=== PATIENT | male | born 1965 | race Caucasian/White ===

== ENCOUNTER 2017-09-17 20:04 | Emergency (ER) | payer SELFPAY ==
[~2017-09-17] VITALS: Ht 177.8 cm; Wt 110.0 kg
[2017-09-17 20:08] VITALS: BP 142/62; PULSE 101; RESP 18; TEMP 100.1; O2SAT 96
--- NOTE | 2017-09-17 21:15 | RADRPT ---
EXAM DATE/TIME: 09/17/2017 20:42 [place] COMPARISON: No previous studies available for comparison. INDICATIONS : Left foot pain and swelling for the past two weeks. No known trauma. MEDICAL HISTORY : None. SURGICAL HISTORY : None. ENCOUNTER: Initial ACUITY: 2 weeks PAIN SCORE: 7/10 LOCATION: Left foot. FINDINGS: Three view examination of the left foot demonstrates no soft tissue swelling, dislocation, or fractur e. The tarsal bones appear intact. The interphalangeal and metatarsophalangeal joints are intact. The calcaneus is intact. Bony mineralization is normal. CONCLUSION: Normal examination for a patient of this age. Luiz Ramirez MD on September 17, 2017 at 21:11 Board Certified Radiologist. This report was verified electronically.
--- NOTE | 2017-09-17 22:36 | PD ---
HPI Chief Complaint: Skin Problem Time Seen by Provider: 22:31 Travel History International Travel<30 days: No Contact w/Intl Traveler<30days: No Traveled to known affect area: No History of Present Illness HPI Patient is a 51-year-old male presenting to the emergency department for evaluation of left foot pain and swelling. Patient states it started 3-4 days ago. He reports that for the last 24 hours he has felt sick, achy. He denies any significant past medical history although he does not have a primary doctor and has not been evaluated in 20 years. Patient states that he does [employer] and runs barefoot doing sprints. He denies any history of athlete's foot but states his feet have been more callus and cracking recently. The pain is a 7 out of 10, is getting progressively worse. Is aching and throbbing. Patient has not taken any medications to alleviate the pain. Symptom onset was gradual , symptoms are moderate in nature. PFSH Past Medical History Medical History: Denies Significant Hx Immunizations Current: Yes Tetanus Vaccination: Unknown Influenza Vaccination: No Social History Alcohol Use: No Tobacco Use: No Substance Use: No Allergies-Medications (Allergen,Severity, Reaction): Coded Allergies: levofloxacin (Verified Allergy, Unknown, 09/17/17) Reported Meds & Prescriptions Reported Meds & Active Scripts Active No Active Prescriptions or Reported Medications Review of Systems Except as stated in HPI: all other systems reviewed are Neg General / Constitutional: Positive: Fever, Chills HENT: No: Headaches Cardiovascular: No: Chest Pain or Discomfort Respiratory: No: Shortness of Breath Gastrointestinal: No: Nausea, Abdominal Pain Genitourinary: No: Dysuria Musculoskeletal: Positive: Myalgias Skin: Positive Dryness, Positive Change in Pigmentation, Positive Lesions Neurologic: No: Weakness Physical Exam Narrative GENERAL: Well-developed, well-nourished, alert male. Presenting in no acute distress. SKIN: Warm and dry. Erythema and edema noted to the left first interdigital space, MTP joint on the left first toe. The plantar aspect of the left foot has a callus to the foot pad that has opened. There is no drainage noted. It is tender to palpation. HEAD: Atraumatic. Normocephalic. EYES: Pupils equal and round. No scleral icterus. No injection or drainage. ENT: No nasal bleeding or discharge. Mucous membranes pink and moist. NECK: Trachea midline. No JVD. CARDIOVASCULAR: Regular rate and rhythm. RESPIRATORY: No accessory muscle use. Clear to auscultation. Breath sounds equal bilaterally. GASTROINTESTINAL: Abdomen soft, non-tender, nondistended. Hepatic and splenic margins not palpable. MUSCULOSKELETAL: Extremities without clubbing, cyanosis, or edema. No obvious deformities. NEUROLOGICAL: Awake and alert. No obvious cranial nerve deficits. Motor grossly within normal limits. Five out of 5 muscle strength in the arms and legs. Normal speech. PSYCHIATRIC: Appropriate mood and affect; insight and judgment normal. Data Data Last Documented VS Vital Signs Date Time Temp Pulse Resp B/P (MAP) Pulse Ox O2 Delivery O2 Flow Rate FiO2 09/18/17 00:13 98.2 65 16 136/61 (86) 98 Room Air Orders Orders Foot, Complete (Vas1gac) (09/17/17 ) Basic Metabolic Panel (Bmp) (09/17/17 22:31) Complete Blood Count With Diff (09/17/17 22:31) Ibuprofen (Motrin) (09/17/17 22:45) C-Reactive Protein (Crp) (09/17/17 22:31) Westergren Sedimentation Rate (09/17/17 22:31) Iv Access Insert/Monitor (09/17/17 22:31) Clindamycin 900 Mg/Ns Premix (Cleocin 90 (09/17/17 22:45) Acetaminophen (Tylenol) (09/17/17 23:00) Labs Laboratory Tests Test 09/17/17 22:40 White Blood Count 14.9 TH/MM3 Red Blood Count 4.80 MIL/MM3 Hemoglobin 14.5 GM/DL Hematocrit 41.8 % Mean Corpuscular Volume 86.9 FL Mean Corpuscular Hemoglobin 30.2 PG Mean Corpuscular Hemoglobin Concent 34.7 % Red Cell Distribution Width 13.6 % Platelet Count 210 TH/MM3 Mean Platelet Volume 8.8 FL Neutrophils (%) (Auto) 86.1 % Lymphocytes (%) (Auto) 6.7 % Monocytes (%) (Auto) 6.3 % Eosinophils (%) (Auto) 0.6 % Basophils (%) (Auto) 0.3 % Neutrophils # (Auto) 12.9 TH/MM3 Lymphocytes # (Auto) 1.0 TH/MM3 Monocytes # (Auto) 0.9 TH/MM3 Eosinophils # (Auto) 0.1 TH/MM3 Basophils # (Auto) 0.1 TH/MM3 CBC Comment DIFF FINAL Differential Comment Erythrocyte Sedimentation Rate 12 mm/hr Blood Urea Nitrogen 22 MG/DL Creatinine 1.56 MG/DL Random Glucose 105 MG/DL Calcium Level 8.6 MG/DL Sodium Level 138 MEQ/L Potassium Level 4.1 MEQ/L Chloride Level 106 MEQ/L Carbon Dioxide Level 22.1 MEQ/L Anion Gap 10 MEQ/L Estimat Glomerular Filtration Rate 47 ML/MIN C-Reactive Protein 8.10 MG/DL MDM Medical Decision Making Medical Screen Exam Complete: Yes Emergency Medical Condition: Yes Interpretation(s) Vital Signs Date Time Temp Pulse Resp B/P (MAP) Pulse Ox O2 Delivery O2 Flow Rate FiO2 09/18/17 00:13 98.2 65 16 136/61 (86) 98 Room Air 09/17/17 20:08 100.1 101 18 142/62 (88) 96 Last Impressions Foot X-Ray 09/17/17 0000 Signed Impressions: Service Date/Time: Sunday, September 17, 2017 20:42 - CONCLUSION: Normal examination for a patient of this age. Luiz Raimrez MD Laboratory Tests Test 09/17/17 22:40 White Blood Count 14.9 TH/MM3 Red Blood Count 4.80 MIL/MM3 Hemoglobin 14.5 GM/DL Hematocrit 41.8 % Mean Corpuscular Volume 86.9 FL Mean Corpuscular Hemoglobin 30.2 PG Mean Corpuscular Hemoglobin Concent 34.7 % Red Cell Distribution Width 13.6 % Platelet Count 210 TH/MM3 Mean Platelet Volume 8.8 FL Neutrophils (%) (Auto) 86.1 % Lymphocytes (%) (Auto) 6.7 % Monocytes (%) (Auto) 6.3 % Eosinophils (%) (Auto) 0.6 % Basophils (%) (Auto) 0.3 % Neutrophils # (Auto) 12.9 TH/MM3 Lymphocytes # (Auto) 1.0 TH/MM3 Monocytes # (Auto) 0.9 TH/MM3 Eosinophils # (Auto) 0.1 TH/MM3 Basophils # (Auto) 0.1 TH/MM3 CBC Comment DIFF FINAL Differential Comment Erythrocyte Sedimentation Rate 12 mm/hr Blood Urea Nitrogen 22 MG/DL Creatinine 1.56 MG/DL Random Glucose 105 MG/DL Calcium Level 8.6 MG/DL Sodium Level 138 MEQ/L Potassium Level 4.1 MEQ/L Chloride Level 106 MEQ/L Carbon Dioxide Level 22.1 MEQ/L Anion Gap 10 MEQ/L Estimat Glomerular Filtration Rate 47 ML/MIN C-Reactive Protein 8.10 MG/DL Differential Diagnosis Retained foreign body versus cellulitis versus abscess versus osteomyelitis versus other Narrative Course Patient is well-appearing 51-year-old male presenting for evaluation of left foot pain, swelling. Patient is febrile and mildly tachycardic. Labs and imaging ordered and pending. 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 In the differential would be retained foreign body, likely cellulitis. Initial x-rays negative. CBC with a white blood cell count of 14.9 with left shift Sed rate is 12 Chemistry with a BUN and creatinine 22/1.56 CRP is 8.1 Patient received acetaminophen for his fever, vital signs are reassessed, patient is afebrile and his heart rate has trended down and is currently 65. Patient received clindamycin 900 mg IV 1 dose. Patient is resting comfortably, it is reasonable to trial a course of outpatient antibiotics. Patient is reliable and was advised to return to emergency department in if he did not not see any improvement or if he had worsening of his symptoms in the next 24 hours. Patient will be discharged home on clindamycin. He was encouraged to rest, ice, elevate extremity. He was advised to avoid having his barefoot on any mats or running until this is well-healed. He verbalized understanding of these instructions. Patient stable for discharge. Diagnosis Primary Impression: Cellulitis of foot Referrals: [facility] Patient Instructions: Cellulitis (ED), General Instructions Additional Instructions: Follow-up with your primary doctor or at the [facility] clinic Return to emergency department immediately for any new or worsening symptoms as discussed within the next 24 hours Complete full course of antibiotics as prescribed Rest, ice, elevate extremity Do not walk barefoot until infection is well-healed Med/Other Pt SpecificInfo: Prescription(s) given Scripts Clindamycin (Clindamycin) 150 Mg Cap 450 MG PO Q8HR for Infection for 10 Days, CAP 0 Refills Prov: Leandra Bo 09/18/17 Disposition: 01 DISCHARGE HOME Condition: Stable Leandra Bo September 17, 2017 22:36
[2017-09-17] MEDS ORDERED: CLINDAMYCIN 900 MG/NS PREMIX 50 ML IV ONE (22:45)
[2017-09-17] MEDS ORDERED: IBUPROFEN 800 MG TAB PO ONE (22:45)
[2017-09-17 22:59] LABS: AUTOMATED NEUTROPHIL # 12.9 TH/MM3 (1.8-7.7); BASOPHIL # 0.1 TH/MM3 (0-0.2); BASOPHIL % 0.3 % (0.0-2.0); EOSINOPHIL # 0.1 TH/MM3 (0-0.4); EOSINOPHIL % 0.6 % (0.0-4.0); HEMATOCRIT 41.8 % (39.0-51.0); HEMOGLOBIN 14.5 GM/DL (13.0-17.0); LYMPH % 6.7 % (9.0-44.0); MEAN CELL VOLUME 86.9 FL (80.0-100.0); MEAN CORPUSCULAR HEMOGLOBIN 30.2 PG (27.0-34.0); MEAN CORPUSCULAR HGB CONC 34.7 % (32.0-36.0); MEAN PLATELET VOLUME 8.8 FL (7.0-11.0); MONO % 6.3 % (0.0-8.0); MONOCYTE # 0.9 TH/MM3 (0-0.9); NEUT % 86.1 % (16.0-70.0); PLATELET COUNT 210 TH/MM3 (150-450); RED CELL DISTRIBUTION WIDTH 13.6 % (11.6-17.2); WHITE BLOOD COUNT 14.9 TH/MM3 (4.0-11.0)
[2017-09-17] MEDS ORDERED: ACETAMINOPHEN 500 MG CPLT PO ONE (23:00)
[2017-09-17 23:14] LABS: BICARBONATE 22.1 MEQ/L (21.0-32.0); C-REACTIVE PROTEIN 8.1 MG/DL (0.00-0.30); CALCIUM 8.6 MG/DL (8.5-10.1); CREATININE 1.56 MG/DL (0.60-1.30)
[2017-09-18 00:13] VITALS: BP 136/61; PULSE 65; RESP 16; TEMP 98.2; O2SAT 98
[2017-09-18] MEDS ORDERED: CLIN150C14 PO (00:39)
== END 2017-09-18 00:56 | disposition home or self-care (01) ==
LOC: NEPD 20:04
DX: L03.116 Cellulitis of left lower limb (principal); R50.9 Fever, unspecified; R00.0 Tachycardia, unspecified
CPT/HCPCS: 73630; 80048; 85025; 85652; 86140; 96374

== ENCOUNTER 2017-12-28 22:07 | Inpatient (IN) ==
[2017-12-28] MEDS ORDERED: Ketorolac Inj 30 MG/ML (IVP) Vial IV.PUSH ONE (23:38)
[2017-12-28] MEDS ORDERED: Sod Chloride 0.9% Inj 1,000 ML IV.SIG ONE (23:38)
--- NOTE | 2017-12-28 23:43 | ED ---
HPI General Chief Complaint: Abdominal Pain Stated Complaint: Time Seen by Provider: 12/28/17 23:27 Source: patient Mode of arrival: ambulatory History of Present Illness HPI Narrative: The patient is a 52-year-old male presented with left flank pain that started a week ago and has been getting progressively worse today. He has history of kidney stones. MD Complaint: back pain Onset (ago): day(s) (2) Duration: constant and progressively worsening Similar Symptoms Previously: Yes Location: left flank Severity: similar to previous episodes Quality: sharp Radiation: flank Severity scale (1-10): 10 Relieving factors: none Exacerbating factors: walking Associated symptoms: other (Reports nausea and vomiting) Related Data Home Medications Medication Instructions Recorded Confirmed No Known Home Medications 12/29/17 12/29/17 Allergies Allergy/AdvReac Type Severity Reaction Status Date / Time levofloxacin Allergy Unknown Anaphylaxis Verified 12/28/17 23:11 Review of Systems ROS: all other systems reviewed are negative PMFSH History History Provided By: Patient Medical History Medical History Kidney stone (Acute) Biceps rupture, distal (Acute) Social History Social History Substance History: Active Abuse Second Hand Smoke Exposure: No Smoking Status: Never smoker Tobacco Type: Cigarettes How Often Do You Have a Drink Containing Alcohol: Never Recent Travel in [place] within the Last 8 Weeks: No Recent Out of Country Travel within the Last 8 Weeks: No Exam Narrative Exam Narrative: GENERAL: Alert and oriented no distress SKIN: Focused skin assessment warm/dry. HEAD: Atraumatic. Normocephalic. EYES: Pupils equal and round. No scleral icterus. No injection or drainage. ENT: No nasal bleeding or discharge. Mucous membranes pink and moist. NECK: Trachea midline. No JVD. CARDIOVASCULAR: Regular rate and rhythm. No murmur appreciated. RESPIRATORY: No accessory muscle use. Clear to auscultation. Breath sounds equal bilaterally. GASTROINTESTINAL: Abdomen soft, non-tender, nondistended. Hepatic and splenic margins not palpable. MUSCULOSKELETAL: No obvious deformities. No clubbing. No cyanosis. No edema. NEUROLOGICAL: Awake and alert. No obvious cranial nerve deficits. Motor grossly within normal limits. Normal speech. PSYCHIATRIC: Appropriate mood and affect; insight and judgment normal. Back/Spine/Pelvis Back: CVA tenderness (Left) Course Initial Documented Vital Signs Temperature 98.0 F 08/17/18 23:11 Pulse Rate 47 L 12/28/17 23:11 Respiratory Rate 16 12/28/17 23:11 Blood Pressure 149/72 H 12/28/17 23:11 Pulse Oximetry 98 12/28/17 23:11 Last Documented Vital Signs Temperature 97.9 F 12/29/17 04:00 Pulse Rate 61 12/29/17 04:00 Respiratory Rate 20 12/29/17 04:00 Blood Pressure 119/60 12/29/17 04:00 Pulse Oximetry 97 12/29/17 04:00 Medical Decision Making MDM Narrative Medical decision making narrative: Patient with a left flank pain and confirmed left ureteral stone of 11 mm. Also positive UA for urinary tract infection as well as leukocytosis. Hemodynamically stable afebrile was placed on IV antibiotics. Was admitted for a urology consultation. Medical Screen Exam Complete: Yes Emergency Medical Condition: Yes Lab Data Lab results reviewed: Yes I reviewed the patient's lab results. Result diagrams: 12/29/17 00:00 12/29/17 00:00 Lab Results 12/29/17 12/29/17 12/29/17 Range/Units 00:00 00:00 00:00 WBC 16.3 H (4.0-11.0) th/mm3 RBC 5.22 (4.50-5.90) mil/mm3 Hgb 15.6 (13.0-17.0) gm/dL Hct 44.7 (39.0-51.0) % MCV 85.5 (80.0-100.0) fL MCH 29.9 (27.0-34.0) pg MCHC 35.0 (32.0-36.0) % RDW 13.5 (11.6-17.2) % Plt Count 233 (150-450) th/mm3 MPV 8.3 (7.0-11.0) fL Neut % (Auto) 84.2 H (16.0-70.0) % Lymph % (Auto) 6.6 L (9.0-44.0) % [place] % (Auto) 6.4 (0.0-8.0) % Eos % (Auto) 2.7 (0.0-4.0) % Baso % (Auto) 0.1 (0.0-2.0) % Neut # (Auto) 13.7 H (1.8-7.7) th/mm3 Lymph # (Auto) 1.1 (1.0-4.8) th/mm3 [place] # (Auto) 1.0 H (0.0-0.9) th/mm3 Eos # (Auto) 0.4 (0.0-0.4) th/mm3 Baso # (Auto) 0.0 (0.0-0.2) th/mm3 WBC Differential . Differential Comment Auto diff final Sodium 142 (136-145) meq/L Potassium 4.3 (3.5-5.1) meq/L Chloride 109 H (98-107) meq/L Carbon Dioxide 27.2 (21.0-32.0) meq/L Anion Gap 6 (5-15) meq/L BUN 15 (7-18) mg/dL Creatinine 1.60 H (0.60-1.30) mg/dL Estimated GFR 45 L (>89) mL/min Random Glucose 98 (74-106) mg/dL Calcium 8.8 (8.5-10.1) mg/dL Total Bilirubin 0.4 (0.2-1.0) mg/dL AST 30 (15-37) U/L ALT 37 (12-78) U/L Alkaline Phosphatase 71 (45-117) U/L Total Protein 7.4 (6.4-8.2) g/dL Albumin 3.8 (3.4-5.0) g/dL Urine Color Yellow (Yellw/Straw) Urine Clarity Hazy H (Clear) Urine pH 5.0 (5.0-8.5) Ur Specific [place] 1.024 (1.002-1.035) Urine Protein 100 H (Neg-Trace) mg/dL Urine Glucose (UA) Negative (Negative) mg/dL Urine Ketones Negative (Negative) mg/dL Urine Occult Blood Large H (Negative) Urine Nitrate Negative (Negative) Urine Bilirubin Negative (Negative) Urine Urobilinogen Less than 2 (Less than 2) mg/dL Ur Leukocyte Esterase Negative (Negative) Urine RBC 26 H (0-3) /hpf Urine WBC 4 (0-5) /hpf Urine WBC Clumps Rare H (None) Calcium Oxalate Crystal Occasional H (None) /hpf Urine Bacteria Rare H (None) /hpf Hyaline Casts 3 (0-3) /lpf Urine Mucus Few H (Occasional) /lpf Micro UA Comment Culture indicated Urine Culture Comments Culture indicated Imaging Data Radiologist's impression: Abdomen/Pelvis CT 12/29/17 00:11 CONCLUSION: 1. 1.3 cm stone at the proximal left ureter at the UPJ region. There is severe dilatation the left collecting system and left perinephric stranding. 2. 1.7 cm hypodensity at the right mid kidney. This nonspecific on this noncontrast CT examination. It likely represents a cyst. Discharge Plan Discharge Disposition Patient Disposition: 30 Still Patient Discharge Condition Condition: Stable Discharge Details Diagnosis: Left ureteral calculus, Acute UTI Physicians Team ED Provider: Lenny Vera Primary Care Provider: Primary Care Beatriz Dubon Attending Provider: Martir Moser Other Providers: Sha Gupta Discharge Interventions Interventions: ED Discharge Assessment Last Done: 12/29/17 04:47 Status ED Status: Left Department Discharge Information Discharge Date/Time: 12/29/17 04:48
[2017-12-29 00:09] LABS: Baso % (Auto) 0.1 % (0.0-2.0); Eos # (Auto) 0.4 th/mm3 (0.0-0.4); Eos % (Auto) 2.7 % (0.0-4.0); Hematocrit 44.7 % (39.0-51.0); Hemoglobin 15.6 gm/dL (13.0-17.0); Lymph # (Auto) 1.1 th/mm3 (1.0-4.8); Lymph % (Auto) 6.6 % (9.0-44.0); Mean Corpuscular Hemoglobin 29.9 pg (27.0-34.0); Mean Corpuscular Volume 85.5 fL (80.0-100.0); Mean Platelet Volume 8.3 fL (7.0-11.0); Mono % (Auto) 6.4 % (0.0-8.0); Neut # (Auto) 13.7 th/mm3 (1.8-7.7); Neut % (Auto) 84.2 % (16.0-70.0); Platelet Count 233 th/mm3 (150-450); Red Blood Count 5.22 mil/mm3 (4.50-5.90); Red Cell Distribution Width 13.5 % (11.6-17.2); White Blood Count 16.3 th/mm3 (4.0-11.0)
[2017-12-29 00:19] LABS: Bacteria,Urine Rare /hpf; Bilirubin,Urine Negative (Negative); Calcium Oxalate Crystals,Urine Occasional /hpf; Clarity,Urine Hazy (Clear); Color,Urine Yellow (Yellw/Straw); Glucose,Urine (UA) Negative (Negative); Hyaline Casts,Urine 3 /lpf (0-3); Leukocyte Esterase,Urine Negative (Negative); Mucus,Urine Few /lpf (Occasional); Nitrite,Urine Negative (Negative); Specific Gravity,Urine 1.024 (1.002-1.035)
[2017-12-29 00:33] LABS: Alanine Aminotransferase 37 U/L (12-78); Albumin 3.8 g/dL (3.4-5.0); Anion Gap 6 meq/L (5-15); Aspartate Aminotransferase 30 U/L (15-37); Blood Urea Nitrogen 15 mg/dL (7-18); Calcium 8.8 mg/dL (8.5-10.1); Carbon Dioxide 27.2 meq/L (21.0-32.0); Chloride 109 meq/L (98-107); Glomerular Filtration Rate 45 mL/min (>89); Glucose,Random 98 mg/dL (74-106); Potassium 4.3 meq/L (3.5-5.1); Sodium 142 meq/L (136-145)
[2017-12-29 00:36] LABS: Alkaline Phosphatase 71 U/L (45-117); Total Protein 7.4 g/dL (6.4-8.2)
[2017-12-29] MEDS ORDERED: Morphine Inj 4 MG/ML Vial IV.PUSH ONE (01:00)
--- NOTE | 2017-12-29 01:00 | CT ---
EXAM DATE: 12/29/2017 12:51 AM EDT AGE/SEX: 52 years / Male INDICATIONS: Left flank pain. CLINICAL DATA: This is the patient's initial encounter. Patient reports that signs and symptoms have been present for 1 day and indicates a pain score of 8/10. MEDICAL/SURGICAL HISTORY: Renal calculi. None. RADIATION DOSE: 11.56 CTDI (mGy) COMPARISON: No prior exams available for comparison. TECHNIQUE: Multiple contiguous axial images were obtained through the abdomen. Images were obtained using multiple row detector helical technique. Using automated exposure control and adjustment of the mA and/or kV according to patient size, radiation dose was kept as low as reasonably achievable to o btain optimal diagnostic quality images. DICOM format image data is available electronically for rev iew and comparison. FINDINGS: Lower Lungs: There is minimal suspected atelectasis at the posterior lower lobes. Liver: The liver has a homogeneous density without space-occupying lesion. There is no dilation of th e biliary tree. Spleen: Homogeneous density without enlargement. Pancreas: Unremarkable without mass or calcification. Kidneys: There is severe dilatation of the left collecting system and left renal pelvis. At the UPJ there is a 1.3 cm obstructing stone. There is left perinephric stranding. The right collecting system is normal. There is a 1.7 cm hypodensity seen at the lateral mid right kidney. This is nonspecific o n this noncontrast CT examination. Adrenal Glands: Unremarkable. Aorta: The aorta and proximal iliac vessels are grossly unremarkable without aneurysmal dilation. Bowel/Mesentery: The bowel loops are grossly unremarkable. The cecum and sigmoid colon have a normal configuration. The appendix is normal. Abdominal Wall: Intact. Retroperitoneum: No evidence of adenopathy in the retrocrural, para-aortic, or deep pelvic regions. Bladder: Contours are smooth. Reproductive Organs: Prostatic calcifications are present. Inguinal: The inguinal region is unremarkable without evidence of adenopathy. Bony Structures: Unremarkable. CONCLUSION: 1. 1.3 cm stone at the proximal left ureter at the UPJ region. There is severe dilatation the left c ollecting system and left perinephric stranding. 2. 1.7 cm hypodensity at the right mid kidney. This nonspecific on this noncontrast CT examination. It likely represents a cyst. Electronically signed by: Harry Fernandez MD 12/29/2017 12:58 AM EDT
[2017-12-29] MEDS ORDERED: Morphine Inj 4 MG/ML Vial IV.PUSH PRN (01:33)
[2017-12-29] MEDS ORDERED: Acetaminophen 325 MG Tablet PO PRN (01:34)
[2017-12-29] MEDS ORDERED: Bisacodyl 10 MG Supp RECTAL PRN (01:34)
[2017-12-29] MEDS ORDERED: Temazepam 15 MG Capsule PO PRN (01:34)
[2017-12-29] MEDS ORDERED: HYDROmorphone PF Inj 2 MG/ML Vial IV.PUSH PRN (01:46)
[2017-12-29] MEDS: Sod Chloride 0.9% Inj 1,000 ML IV.CONT SCH ×2 (02:39→13:00)
--- NOTE | 2017-12-29 03:36 | P.HPIM ---
History of Present Illness Primary Care Physician: No Primary Care Physician History of Present Illness: This is a 51-year-old male with PMH of Renal Stones who presented to ER with complaints of severe left-sided flank pain x2-3 days. Pain is constant, severe , 10/10, non-radiating, associated w/ nausea, no vomiting. H/o renal stone approx 10yrs ago requiring intervention. Denies fever or chills. On arrival, BP 149/72, HR 47, O2 sat 98% on RA, Afebrile. WBC 16.3. Creatinine 1.60, previously 1.56 on 09/17/2017. UA positive for UTI. CT Abdomen/Pelvis with 1.3 cm stone left proximal ureter at UPJ with severe dilatation of left collecting system and left perinephric stranding, 1.7 cm hypodensity right mid kidney likely cyst. - Diagnosis (1) Kidney stone (2) UTI (urinary tract infection) (3) Renal insufficiency Inpatient Certification: I certify that the inpatient services were ordered in accordance with Medicare regulations governing the order. This includes certification that hospital inpatient services are reasonable and necessary and in the case of services not specified as inpatient-only under 42 CFR 419.22(n), that they are appropriately provided as inpatient services in accordance to with the 2-midnight benchmark under 43 CFR 412.3(e) Estimated Total Length of Stay (Days): 2 Plans for Post Hospital Care: Not yet determined Review of Systems PAST FAMILY HISTORY: Reviewed. No h/o DM or CAD All other systems reviewed negative except as stated in HPI [facility] - History History Provided By: Patient - Medical History Medical History: Medical History (Last Reviewed 12/28/17 @ 23:13 by Mary Vora) Kidney stone (Acute) Biceps rupture, distal (Acute) - Tobacco History Second Hand Smoke Exposure: No Smoking Status: Never smoker Tobacco Type: Cigarettes - Alcohol History How Often Do You Have a Drink Containing Alcohol: Never - Substance Use History Substance History: Active Abuse - Travel History Recent Travel in the [place] Within the Last 8 Weeks: No Recent Travel Out of the Country Within the Last 8 Weeks: No Medications and Allergies Active Medications: Active Medications Acetaminophen (Tylenol) 650 mg PO Q4H PRN PRN Reason: Temp > 100.4 Hydrocodone Bitart/Acetaminophen ([place] 5/325) 1 tab PO Q4H PRN PRN Reason: PAIN 3-5 Al Hydroxide/Mg Hydroxide (Milk Of Magnesia Liq) 30 ml PO Q12H PRN PRN Reason: Mild Constipation Bisacodyl (Dulcolax Supp) 10 mg RECTAL DAILY PRN PRN Reason: SEVERE CONSITIPATION Hydromorphone HCl (Dilaudid Pf Inj) 1 mg IV.PUSH Q4H PRN PRN Reason: PAIN 6-10 Ceftriaxone Sodium 1,000 mg/ (Sodium Chloride) 100 mls @ 200 mls/hr IV.SIG Q24H [facility] Last Admin: 12/29/17 02:47 Dose: 200 mls/hr Sodium Chloride (Ns Inj) 1,000 mls @ 100 mls/hr IV.CONT .Q10H [facility] Lactulose (Lactulose Liq) 30 ml PO DAILY PRN PRN Reason: SEVERE CONSITIPATION Ondansetron HCl (Zofran Inj) 4 mg IV.PUSH Q6H PRN PRN Reason: NAUSEA OR VOMITING Senna/Docusate Sodium (Elizabeth-Colace) 1 tab PO BID [facility] Sennosides (Senokot) 17.2 mg PO Q12H PRN PRN Reason: Moderate Constipation Tamsulosin HCl (Flomax) 0.4 mg PO DAILY [facility] Temazepam (Restoril) 15 mg PO HS PRN PRN Reason: INSOMNIA Allergies Allergy/AdvReac Type Severity Reaction Status Date / Time levofloxacin Allergy Unknown Anaphylaxis Verified 12/28/17 23:11 Home Medications Medication Instructions Recorded Confirmed Type No Known Home Medications 12/29/17 12/29/17 History Exam Vital signs: Vital Signs 12/28/17 23:11 Temperature 98.0 F Pulse Rate 47 L Respiratory Rate 16 Blood Pressure 149/72 H Pulse Oximetry 98 Intake & Output 12/28/17 12/28/17 12/29/17 06:59 18:59 06:59 Weight 250 kg Narrative: PE: GENERAL: Very physically fit middle-aged white male in no acute distress. HEENT: PERRLA, EOMI. No scleral icterus or conjunctival pallor. No lid lag or facial droop. CARDIOVASCULAR: Regular rate and rhythm. No obvious murmurs to auscultation. No chest tenderness to palpation. RESPIRATORY: No obvious rhonchi or wheezing. Clear to auscultation. Breath sounds equal bilaterally. GASTROINTESTINAL: Abdomen soft, left flank tenderness to palpation, nondistended. BS normal. MUSCULOSKELETAL: Extremities without clubbing, cyanosis, or edema. No obvious deformities. NEUROLOGICAL: Awake, alert and oriented x4. No focal neurologic deficits. Moving both upper and lower extremities spontaneously. Results - Labs CBC & Chem 7: 12/29/17 00:00 12/29/17 00:00 Labs: Short CBC 12/29/17 Range/Units 00:00 WBC 16.3 H (4.0-11.0) th/mm3 Hgb 15.6 (13.0-17.0) gm/dL Hct 44.7 (39.0-51.0) % Plt Count 233 (150-450) th/mm3 BMP 12/29/17 00:00 Sodium 142 Potassium 4.3 Chloride 109 H Carbon Dioxide 27.2 BUN 15 Creatinine 1.60 H Calcium 8.8 Liver Function 12/29/17 Range/Units 00:00 Total Bilirubin 0.4 (0.2-1.0) mg/dL AST 30 (15-37) U/L ALT 37 (12-78) U/L Alkaline Phosphatase 71 (45-117) U/L Albumin 3.8 (3.4-5.0) g/dL Urine 12/29/17 Range/Units 00:00 Urine Color Yellow (Yellw/Straw) Urine Clarity Hazy H (Clear) Urine pH 5.0 (5.0-8.5) Ur Specific [place] 1.024 (1.002-1.035) Urine Protein 100 H (Neg-Trace) mg/dL Urine Glucose (UA) Negative (Negative) mg/dL - Imaging Impressions Abdomen/Pelvis CT 12/29/17 00:11 CONCLUSION: 1. 1.3 cm stone at the proximal left ureter at the UPJ region. There is severe dilatation the left collecting system and left perinephric stranding. 2. 1.7 cm hypodensity at the right mid kidney. This nonspecific on this noncontrast CT examination. It likely represents a cyst. Caprini VTE Risk Assessment Caprini VTE Risk Assessment: No/Low Risk (score <= 1) Caprini Risk Assessment Model: Point Value = 1 Point Value = 2 Point Value = 3 Point Value = 5 Age 41-60 Minor surgery BMI > 25 kg/m2 Swollen legs Varicose veins or History of unexplained or recurrent spontaneous Oral contraceptives or hormone replacement Sepsis (< 1 month) Serious lung disease, including pneumonia (< 1 month) Abnormal pulmonary function Acute myocardial infarction Congestive heart failure (< 1 month) History of inflammatory bowel disease Medical patient at bed rest Age 61-74 Arthroscopic surgery Major open surgery (> 45 min) Laparoscopic surgery (> 45 min) Malignancy Confined to bed (> 72 hours) Immobilizing plaster cast Central venous access Age >= 75 History of VTE Family history of VTE Factor V Leiden Prothrombin [id number] Lupus anticoagulant Anticardiolipin antibodies Elevated serum homocysteine Heparin-induced thrombocytopenia Other congenital or acquired thrombophilia Stroke (< 1 month) Elective arthroplasty Hip, pelvis, or leg fracture Acute spinal cord injury (< 1 month) Prophylaxis Regimen: Total Risk Factor Score Risk Level Prophylaxis Regimen 0-1 Low Early ambulation 2 Moderate Order ONE of the following: *Sequential Compression Device (SCD) *Heparin 5000 units SQ BID 3-4 Higher Order ONE of the following medications: *Heparin 5000 units SQ TID *Enoxaparin/Lovenox 40 mg SQ daily (WT < 150 kg, CrCl > 30 mL/min) *Enoxaparin/Lovenox 30 mg SQ daily (WT < 150 kg, CrCl > 10-29 mL/min) *Enoxaparin/Lovenox 30 mg SQ BID (WT < 150 kg, CrCl > 30 mL/min) AND/OR *Sequential Compression Device (SCD) 5 or more Highest Order ONE of the following medications: *Heparin 5000 units SQ TID (Preferred with Epidurals) *Enoxaparin/Lovenox 40 mg SQ daily (WT < 150 kg, CrCl > 30 mL/min) *Enoxaparin/Lovenox 30 mg SQ daily (WT < 150 kg, CrCl > 10-29 mL/min) *Enoxaparin/Lovenox 30 mg SQ BID (WT < 150 kg, CrCl > 30 mL/min) AND *Sequential Compression Device (SCD) Assessment and Plan - Assessment (1) Kidney stone Code(s): N20.0 - Calculus of kidney Status: Acute (2) UTI (urinary tract infection) Code(s): N39.0 - Urinary tract infection, site not specified Status: Acute (3) Renal insufficiency Code(s): N28.9 - Disorder of kidney and ureter, unspecified Status: Acute - Plan A/P: 1. Renal Stone: acute onset left flank pain, CT Abd/Pelvis w/ 1.3cm stone proximal left ureter at UPJ w/ associated dilatation of left collecting system and perinephric stranding, images reviewed. Consult Urology for further evaluation/intervention. NPO, IVF, analgesics/antiemetics 2. Renal Insufficiency: Acute on Chronic. Creatinine 1.60, previously 1.56 on 09/17/17, monitor I/O, IVF for hydration, repeat labs in am, avoid NSAIDs/ Toradol. 3. UTI: U/a w/ UTI, likely infected stone, start IV Rocephin, follow up cultures, IVF 4. DVT Prophylaxis: SCD/Teds 5. Social work for d/c planning as needed 6. Case discussed with ER physician, lab/record/imaging reviewed by me.
[2017-12-29] MEDS ORDERED: Senna/Docusate Sodium 8.6/50 MG Tablet PO SCH (09:00)
--- NOTE | 2017-12-29 10:51 | P.CONURO ---
History of Present Illness Service: Urology Consult date: 12/29/17 Reason for Consult: Nephrolithiasis Primary Care Provider: No Primary Care Physician Chief Complaint: Nephrolithiasis History of Present Illness: 52yo male with history of nephrolithiasis admitted now with left sided flank pain and obstructing 1.3cm left proximal ureteral stone. Patient reports the pain began yesterday and was rather severe. He denies any N/V, no fevers. He has had kidney stones in the past, approx 10yrs which was treated with what sounds like Ureteroscopy. At this time, the patient is adamant that he does not want a stent or nephrostomy tube. We discussed that without intervention his pain may worsen and risk infection as well as renal damage. Patient understands , however states he wants to get the stone treated with ESWL to breakup the stone and does not want a stent or nephrostomy tube. At this time, the patient is resting comfortably and would like to eat. Review of Systems All other systems reviewed negative except as stated in HPI Constitutional: Denies fever(s) Eyes: Denies blurry vision Ears, Nose, Mouth, and Throat: Denies abnormal hearing Cardiovascular: Denies chest pain Respiratory: Denies chest congestion, Denies cough Gastrointestinal: Reports abdominal pain Genitourinary: Denies blood in urine Musculoskeletal: Reports back pain Neurologic: Denies loss of vision Hematologic/Lymphatic: Denies easy bleeding Allergic/Immunologic: Denies hives PMFSH - History History Provided By: Patient - Medical History Medical History: Medical History (Last Reviewed 12/29/17 @ 07:04 by Lenny Vera DO) Kidney stone (Acute) Biceps rupture, distal (Acute) - Tobacco History Second Hand Smoke Exposure: No Smoking Status: Never smoker Tobacco Type: Cigarettes - Alcohol History How Often Do You Have a Drink Containing Alcohol: Never - Substance Use History Substance History: Active Abuse - Travel History Recent Travel in the [place] Within the Last 8 Weeks: No Recent Travel Out of the Country Within the Last 8 Weeks: No - Immunization History Tetanus Immunization: >5 Years Hx Influenza Vaccine This Season: No Medications and Allergies Active Medications: Active Medications Acetaminophen (Tylenol) 650 mg PO Q4H PRN PRN Reason: Temp > 100.4 Hydrocodone Bitart/Acetaminophen ([place] 5/325) 1 tab PO Q4H PRN PRN Reason: PAIN 3-5 Al Hydroxide/Mg Hydroxide (Milk Of Magnesia Liq) 30 ml PO Q12H PRN PRN Reason: Mild Constipation Bisacodyl (Dulcolax Supp) 10 mg RECTAL DAILY PRN PRN Reason: SEVERE CONSITIPATION Hydromorphone HCl (Dilaudid Pf Inj) 1 mg IV.PUSH Q4H PRN PRN Reason: PAIN 6-10 Last Admin: 12/29/17 06:02 Dose: 1 mg Ceftriaxone Sodium 1,000 mg/ (Sodium Chloride) 100 mls @ 200 mls/hr IV.SIG Q24H [facility] Last Infusion: 12/29/17 03:17 Dose: Infused Sodium Chloride (Ns Inj) 1,000 mls @ 100 mls/hr IV.CONT .Q10H [facility] Last Infusion: 12/29/17 04:44 Dose: 100 mls/hr Lactulose (Lactulose Liq) 30 ml PO DAILY PRN PRN Reason: SEVERE CONSITIPATION Ondansetron HCl (Zofran Inj) 4 mg IV.PUSH Q6H PRN PRN Reason: NAUSEA OR VOMITING Senna/Docusate Sodium (Elizabeth-Colace) 1 tab PO BID [facility] Last Admin: 12/29/17 08:47 Dose: Not Given Sennosides (Senokot) 17.2 mg PO Q12H PRN PRN Reason: Moderate Constipation Tamsulosin HCl (Flomax) 0.4 mg PO DAILY [facility] Last Admin: 12/29/17 08:47 Dose: 0.4 mg Temazepam (Restoril) 15 mg PO HS PRN PRN Reason: INSOMNIA Allergies Allergy/AdvReac Type Severity Reaction Status Date / Time levofloxacin Allergy Unknown Anaphylaxis Verified 12/28/17 23:11 Home Medications Medication Instructions Recorded Confirmed Type No Known Home Medications 12/29/17 12/29/17 History Physical Exam Vital Signs - 24 hr 12/28/17 23:11 12/29/17 01:34 12/29/17 04:00 Temperature 98.0 F 97.9 F Pulse Rate 47 L 67 61 Respiratory Rate 16 18 20 Blood Pressure 149/72 H 132/70 119/60 Pulse Oximetry 98 97 97 12/29/17 08:22 Temperature 97.8 F Pulse Rate 80 Respiratory Rate 18 Blood Pressure 111/51 L Pulse Oximetry 98 Physical Exam: GENERAL: This is a well-nourished, well-developed patient, in no apparent distress. SKIN: No rashes, ecchymoses or lesions. Cool and dry. HEAD: Atraumatic. Normocephalic. EYES: Extraocular motions intact. No scleral icterus. No injection or drainage. ENT: Nose without bleeding, purulent drainage. Airway patent. NECK: Trachea midline. CARDIOVASCULAR: Normal pulse RESPIRATORY: Nonlabored GASTROINTESTINAL: Abdomen soft, non-tender, nondistended. MUSCULOSKELETAL: Extremities without clubbing, cyanosis, or edema.. NEUROLOGICAL: Awake and alert. Motor and sensory grossly within normal limits. Normal speech. Laboratory Results - last 24 hr 12/29/17 12/29/17 12/29/17 00:00 00:00 00:00 WBC 16.3 H RBC 5.22 Hgb 15.6 Hct 44.7 MCV 85.5 MCH 29.9 MCHC 35.0 RDW 13.5 Plt Count 233 MPV 8.3 Neut % (Auto) 84.2 H Lymph % (Auto) 6.6 L [place] % (Auto) 6.4 Eos % (Auto) 2.7 Baso % (Auto) 0.1 Neut # (Auto) 13.7 H Lymph # (Auto) 1.1 [place] # (Auto) 1.0 H Eos # (Auto) 0.4 Baso # (Auto) 0.0 WBC Differential . Differential Comment Auto diff final Sodium 142 Potassium 4.3 Chloride 109 H Carbon Dioxide 27.2 Anion Gap 6 BUN 15 Creatinine 1.60 H Estimated GFR 45 L Random Glucose 98 Calcium 8.8 Total Bilirubin 0.4 AST 30 ALT 37 Alkaline Phosphatase 71 Total Protein 7.4 Albumin 3.8 Urine Color Yellow Urine Clarity Hazy H Urine pH 5.0 Ur Specific [place] 1.024 Urine Protein 100 H Urine Glucose (UA) Negative Urine Ketones Negative Urine Occult Blood Large H Urine Nitrate Negative Urine Bilirubin Negative Urine Urobilinogen Less than 2 Ur Leukocyte Esterase Negative Urine RBC 26 H Urine WBC 4 Urine WBC Clumps Rare H Calcium Oxalate Crystal Occasional H Urine Bacteria Rare H Hyaline Casts 3 Urine Mucus Few H Micro UA Comment Culture indicated Urine Culture Comments Culture indicated Result Diagrams: 12/29/17 00:00 12/29/17 00:00 Imaging: ITS Impressions Abdomen/Pelvis CT 12/29/17 00:11 CONCLUSION: 1. 1.3 cm stone at the proximal left ureter at the UPJ region. There is severe dilatation the left collecting system and left perinephric stranding. 2. 1.7 cm hypodensity at the right mid kidney. This nonspecific on this noncontrast CT examination. It likely represents a cyst. Assessment and Plan - Assessment (1) Left ureteral calculus Code(s): N20.1 - Calculus of ureter Status: Acute - Plan -Offered intervention today in the form of ureteral stent placement vs nephrostomy tube. Patient refused, and requesting ESWL -At this time, the patient is comfortable, pain controlled, no N/V, no Fevers. Therefore discussed with patient that he may be discharged with pain medication and followup with [facility] for management regarding his stone burden. -Patient does not have insurance and we will arrange for him to contact the [facility] Assistance program and to then contact [facility] to be seen and treated. -Patient does understand that if he develops fevers or pain worsens that he is to report to the ED and will then require intervention in the form of stent vs nephrostomy tube -Patient may have regular diet now and clear for discharge from Urology standpoint with Toradol and percocet -Please call with questions
[2017-12-29] MEDS ORDERED: Ketorolac 10 MG Tablet PO PRN (10:52)
--- NOTE | 2017-12-29 13:41 | P.DS ---
Date of admission: 12/29/17 02:33 Primary care physician: No Primary Care Physician Attending physician on discharge: Martir Moser Anticipated date of discharge: 12/29/17 Brief History from admission: This is a 51-year-old male with PMH of Renal Stones who presented to ER with complaints of severe left-sided flank pain x2-3 days. Pain is constant, severe , 10/10, non-radiating, associated w/ nausea, no vomiting. H/o renal stone approx 10yrs ago requiring intervention. Denies fever or chills. On arrival, BP 149/72, HR 47, O2 sat 98% on RA, Afebrile. WBC 16.3. Creatinine 1.60, previously 1.56 on 09/17/2017. UA positive for UTI. CT Abdomen/Pelvis with 1.3 cm stone left proximal ureter at UPJ with severe dilatation of left collecting system and left perinephric stranding, 1.7 cm hypodensity right mid kidney likely cyst. DS: Diagnosis - Discharge Diagnosis (1) Left ureteral calculus Status: Acute DS: Medications - Discharge Medications Prescriptions: hydrocodone-acetaminophen 1 tab PO Q4H PRN #18 tab PRN Reason: PAIN 3-5 DS: Summary Hospital Course: 52-year-old male presenting with left flank pain. Imaging indicated a 1.3 cm stone proximal left ureter. Has history of prior obstructing stone. Urology consulted-they recommended stent or nephrostomy tube however patient declined. Agreed to see patient in the outpatient setting for ESWL. Urology requesting patient be discharged with pain control; [facility] consulted-patient has no history of prior controlled substances. - Time Spent with Patient Total time spent providing and/or coordinating discharge services: Less than 30 minutes Exam Vital signs: Vital Signs 12/28/17 23:11 12/29/17 01:34 12/29/17 04:00 Temperature 98.0 F 97.9 F Pulse Rate 47 L 67 61 Respiratory Rate 16 18 20 Blood Pressure 149/72 H 132/70 119/60 Pulse Oximetry 98 97 97 12/29/17 08:22 Temperature 97.8 F Pulse Rate 80 Respiratory Rate 18 Blood Pressure 111/51 L Pulse Oximetry 98 Intake & Output 12/28/17 12/29/17 12/29/17 18:59 06:59 18:59 Intake Total 100 / 100 1000 / 1000 Balance 100 / 100 1000 / 1000 Weight 250 kg Intake: IV 100 / 100 1000 / 1000 NS Inj 1,000 ML @ Wide Open IV. 1000 / 1000 SIG BOLUS ONE Rx#:[id number] Rocephin Inj 1,000 MG In NS Inj 100 / 100 100 ML @ 200 mls/hr IV.SIG Q24H [facility] Rx#:[id number] Narrative: GENERAL: This is a well-nourished, well-developed patient, in no apparent distress. SKIN: No rashes, ecchymoses or lesions. Cool and dry. HEAD: Atraumatic. Normocephalic. CARDIOVASCULAR: Regular rate and rhythm RESPIRATORY: Nonlabored ; clear to auscultation GASTROINTESTINAL: Abdomen soft, non-tender, nondistended. MUSCULOSKELETAL: Extremities without clubbing, cyanosis, or edema.. NEUROLOGICAL: Awake and alert. Motor and sensory grossly within normal limits. Normal speech. Results Procedures completed during hospitalization: none Labs on day of discharge: Labs from last 24 hours 12/29/17 12/29/17 12/29/17 00:00 00:00 00:00 WBC 16.3 H RBC 5.22 Hgb 15.6 Hct 44.7 MCV 85.5 MCH 29.9 MCHC 35.0 RDW 13.5 Plt Count 233 MPV 8.3 Neut % (Auto) 84.2 H Lymph % (Auto) 6.6 L [place] % (Auto) 6.4 Eos % (Auto) 2.7 Baso % (Auto) 0.1 Neut # (Auto) 13.7 H Lymph # (Auto) 1.1 [place] # (Auto) 1.0 H Eos # (Auto) 0.4 Baso # (Auto) 0.0 WBC Differential . Differential Comment Auto diff final Sodium 142 Potassium 4.3 Chloride 109 H Carbon Dioxide 27.2 Anion Gap 6 BUN 15 Creatinine 1.60 H Estimated GFR 45 L Random Glucose 98 Calcium 8.8 Total Bilirubin 0.4 AST 30 ALT 37 Alkaline Phosphatase 71 Total Protein 7.4 Albumin 3.8 Urine Color Yellow Urine Clarity Hazy H Urine pH 5.0 Ur Specific [place] 1.024 Urine Protein 100 H Urine Glucose (UA) Negative Urine Ketones Negative Urine Occult Blood Large H Urine Nitrate Negative Urine Bilirubin Negative Urine Urobilinogen Less than 2 Ur Leukocyte Esterase Negative Urine RBC 26 H Urine WBC 4 Urine WBC Clumps Rare H Calcium Oxalate Crystal Occasional H Urine Bacteria Rare H Hyaline Casts 3 Urine Mucus Few H Micro UA Comment Culture indicated Urine Culture Comments Culture indicated - Impressions ITS Impressions Abdomen/Pelvis CT 12/29/17 00:11 CONCLUSION: 1. 1.3 cm stone at the proximal left ureter at the UPJ region. There is severe dilatation the left collecting system and left perinephric stranding. 2. 1.7 cm hypodensity at the right mid kidney. This nonspecific on this noncontrast CT examination. It likely represents a cyst. Discharge Plan - Discharge Disposition Patient Disposition: 01 Discharge Home - Discharge Condition Condition: Stable - Discharge Order Discharge Orders: Discharge Order (Routine); Ordered 12/29/17 Ordered By: Nuvia Chirinos - Physicians Team Primary Care Provider: Primary Care Jagdish,Beatriz Attending Provider: Martir Moser Other Providers: Sha Gupta MD
== END 2017-12-29 15:09 | disposition home or self-care (01) ==
LOC: NEPC 22:07 → NEDA 12-29 02:33 → NEPGCP 12-29 04:46
PROVIDERS: ADMIT Hospitalist; ATTEND Hospitalist